=== PATIENT | male | born 1945 | race Caucasian/White ===

== ENCOUNTER 2017-02-08 07:09 | Day surgery (SDC) | payer MEDICARE ==
[~2017-02-08] VITALS: Ht 182.9 cm; Wt 120.2 kg
[~2017-02-08 07:09] MED LIST: AMOXICILLIN/CL875 MG PO; ASPIRIN 8181 MG PO; ASPIRIN EC81 MG PO; ATORVASTATIN CA40 MG PO; CALCIUM250 M1 PO; CALCIUM500 M4 PO; CARVEDILOL6.25 MG PO; CIPROFLOXACN500 MG PO; COREG12.5 MG PO; COUMADIN5 MG PO; FENOFIBRATE160 MG PO; FISH OIL1000 MG PO; FLONASE SPRAY50 MC1; FLUTICASONE50 MCG; FUROSEMIDE40 MG PO; HYZAAR1 TA2 PO; KLOR-CON M2020 MEQ PO; KLOR-CON20 MEQ PO; LASIX 40 MG TAB40 MG PO; LORTAB 7.57.5 MG PO; MAGNESIUM PO; MEDDOSEPAK PO; METRONIDAZOL250 MG PO; METRONIDAZOL500 MG PO; MOBIC7.5 M1 PO; MOBIC7.5 MG PO; OCUVITE PO; PROBIOTI1 PO; TIKOSYN250 MCG PO; TRIGLIDE160 MG PO; VIT B1; VIT B12; VITAMIN B CO PO; VITAMIN B-1100 M1 PO; VITAMIN B-12500 MCG PO; [UNRECOGNIZED DRUG - OTHER] PO
[2017-02-08] MEDS ORDERED: LORTAB 5/3255 MG PO (10:50)
[2017-02-08 11:34] VITALS: BP 132/70
== END 2017-02-08 11:00 | disposition home or self-care (01) ==
LOC: ORM 07:09
PROVIDERS: ATTEND Surgery
PROC: 0JPT0XZ Removal of Tunneled Vascular Access Device from Trunk Subcutaneous Tissue and Fascia, Open Approach (ICD-10-PCS; principal; 2017-02-08)
PROC: 02PY33Z Removal of Infusion Device from Great Vessel, Percutaneous Approach (ICD-10-PCS; 2017-02-08)
DX: Z45.2 Encounter for adjustment and management of vascular access device (principal); I48.91 Unspecified atrial fibrillation; I25.10 Atherosclerotic heart disease of native coronary artery without angina pectoris; Z85.72 Personal history of non-Hodgkin lymphomas; Z79.01 Long term (current) use of anticoagulants